=== PATIENT | male | born 1965 | race Caucasian/White ===

== ENCOUNTER 2018-10-14 09:13 | Observation (INO) ==
[2018-10-14] MEDS ORDERED: NITROGLYCERIN 2% OINTMENT 30GM TUBE EXT STA (09:40)
[2018-10-14 09:50] LABS: Basophils # (auto) 0.05 K/uL (0-0.2); Basophils % (auto) 0.8 %; Eosinophils # (auto) 0.16 K/uL (0-0.5); Eosinophils % (auto) 2.5 %; Hemoglobin 15.9 g/dL (14.0-18.0); Immature Granulocytes # (auto) 0.01 K/uL (0.00-0.02); Immature Granulocytes % (auto) 0.2 %; Lymphocytes # (auto) 1.44 K/uL (1.2-3.4); Lymphocytes % (auto) 22.8 %; Mean Corpuscular Hgb Conc 33.8 g/dL (32-36); Mean Corpuscular Volume 83.8 fL (80-100); Mean Platelet Volume 10.1 fL (7.4-10.4); Monocytes # (auto) 0.43 K/uL (0.11-0.59); Monocytes % (auto) 6.8 %; Neutrophils # (auto) 4.23 K/uL (1.4-6.5); Neutrophils % (auto) 66.9 %; Platelet Count 226 K/uL (130-400); RDW Coefficient of Variation 13.3 % (11.5-14.5); RDW Standard Deviation 40.3 fL (36.4-46.3); Red Blood Count 5.61 M/uL (4.7-6.1); White Blood Count 6.32 K/uL (4.8-10.8)
[2018-10-14 10:01] LABS: Alanine Aminotransferase 24 U/L (12-78); Albumin Level 3.6 gm/dl (3.4-5.0); Aspartate Aminotransferase 14 U/L (15-37); BUN Creatinine Ratio 21.7 (10-20); Blood Urea Nitrogen 34 mg/dl (7-18); Calcium 8.9 mg/dl (8.5-10.1); Carbon Dioxide 26 mmol/L (21-32); Chloride 106 mmol/L (98-107); Creatinine Clr Calc Pharmacy 50.8 ml/min; Est GFR (African American) 57.5; Est GFR (Non-African American) 49.6; Glucose 120 mg/dl (70-99); Magnesium 1.9 mg/dl (1.8-2.4); Sodium 138 mmol/L (136-145)
[2018-10-14 10:06] LABS: Albumin Globulin Ratio 1.1 (0.9-2); Alkaline Phosphatase 72 U/L (45-117); Bilirubin,Total 0.5 mg/dl (0.2-1); Globulin 3.4 gm/dl (2.5-4.0); Troponin I < 0.015 ng/ml (0-0.045)
--- NOTE | 2018-10-14 10:06 | XRay Report ---
XR chest 1V portable HISTORY: Atypical Chest Pain COMPARISON: Chest 06/29/2016. FINDINGS: The lungs are clear. The heart is normal in size. No pleural effusions. No pneumothorax. Ol d, healed left-sided rib fractures. IMPRESSION: No acute process. Electronically signed by: Mikael Tucker M.D. 10/14/2018 10:05 AM
[2018-10-14] MEDS ORDERED: METOPROLOL TARTRATE 1 MG/ML VIAL IV STA (11:09)
--- NOTE | 2018-10-14 11:59 | History & Physical Report ---
Date of Service October 14, 2018 Assessment & Plan (1) Precordial chest pain: Concerning for ACS given sx, elevated BP, and resolution with nitro Father with hx of CO Trop neg x1, serials pending EKG WNL CXR neg PRP,CBC WNL If trops are neg x3, stress test in AM No prior cardiology hx, can await stress results for possible cardiology c/s Lipid panel pending (2) Elevated BP without diagnosis of hypertension: No prior hx of same True HTN vs stress reaction Lopressor in ED, monitor PRN lopressor (3) DVT prophylaxis: SCDs, ambulation History of Present Illness Primary Care Provider: Wali Maradiaga 53 y/o M c/o chest pain. Pt states he was outside shoveling snow around 5:30a today when he noted a tightness in his chest, more to the L side. He also noted that moving the snow was more difficult than usual. He felt like he was working much harder than normal despite it being a light snow and only about 1 inch. He felt like it took longer overall. He was a bit SOB with this and felt very tired after he was finished. He went inside and rested a bit. He then drove his daughter to school around 8am. This pain moved into his L UE. On his way back home, he had to ticket puller because he felt like he was going to "black out". He pulled into a gas station and sat for about 10 minutes. He went inside to ask for aspirin, but they did not have any. He went back out to his car where he deliberated driving home vs calling an ambulance because he continued to feel like he might pass out. He decided to drive himself home. He took some aspirin when he got there and laid down on the couch. 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 She took his BP and it was 180 systolic. Given his sx and the elevated BP, she recommended pt come to the ED. Pt was given nitro paste in the ED and his sx have fully resolved. He has no further chest pain or feelings of passing out. Pt states he has never had anything like this in the past. He had no issues over the weekend--no feelings of heavy fatigue or passing out. Pt states he had his BP checked with his PCP 4- 6 weeks ago and it was 120/80. He denies hx of much higher than 130 systolic. Pt denies fever, abd pain, n/v/c/d, LE pain or swelling. Allergies Allergy/AdvReac Type Severity Reaction Status Date / Time cat dander AdvReac Cough Unverified 10/14/18 10:34 mold AdvReac Cough Unverified 10/14/18 10:34 Home Medications Home Medications Medication Instructions Recorded Confirmed Type omega 5-ztx-fsu-fish oil [Fish Oil] 2 cap PO DAILY 10/14/18 10/14/18 History sildenafil 100 mg PO UD 10/14/18 10/14/18 History Past Med/Surg History Medical History Foot pain (Acute) Right lower lobe pneumonia Status post foot surgery (Acute) Heart murmur Family History Father FH: heart attack Social History marital status: Current Living Situation: Family current occupational status: employed Feels Safe at Home: Yes Smoking Status: Never smoker Hx Alcohol Use: Yes (3-4 beers most Tevin nights) Hx Substance Use: No Preferred Language: Mohawk Review of Systems Pertinent positives and negatives reviewed in HPI--all others negative Physical Exam 2 Vital Signs (Past 24 Hours): Last Vital Signs Temp 36.8 C 10/14/18 09:17 Pulse 66 10/14/18 11:38 Resp 18 10/14/18 11:38 BP 150/95 H 10/14/18 11:38 Pulse Ox 94 10/14/18 11:38 Constitutional: WD/WN, vitals as above Eyes: normal visual hernandez by confrontation and + anicteric sclerae Neck: normal visual inspection and trachea midline Respiratory: normal respiratory effort, lungs clear to auscultation Cardiovascular: Rate/Rhythm: regular rate and regular rhythm Gastrointestinal (Abdomen): Inspection/Auscultation: abdomen not distended Percussion/Palpation: abdomen soft; abdomen nontender Musculoskeletal: Head/Neck/Chest: normocephalic and head atraumatic negative for edema, peripheral pulses intact Skin: no rashes, warm and dry Neurologic: awake; not confused Speech / Cognition: normal speech Psychiatric: A+Ox3, euthymic affect Results & Data Diagnostic Findings CXR: neg ECG Rhythm: normal sinus Code Status & VTE Plan Code Status Full code, does not want prolonged mechanical life support, feeding tubes, etc VTE Prophylaxis Plan VTE Prophylaxis will be ordered: Yes
[2018-10-14] MEDS ORDERED: MAGNESIUM HYDROXIDE SUSP 30 ML UDC PO PRN (12:32)
[2018-10-14] MEDS ORDERED: ACETAMINOPHEN 325 MG TAB PO PRN (12:32)
[2018-10-14] MEDS ORDERED: METOPROLOL TARTRATE 1 MG/ML VIAL IV PRN (12:32)
[2018-10-14] MEDS ORDERED: NITROGLYCERIN SL 0.4 MG/TAB TAB SL PRN (12:32)
[2018-10-14] MEDS ORDERED: ONDANSETRON INJ 2 MG/ML 2 ML VIAL IV PRN (12:32)
--- NOTE | 2018-10-14 15:18 | Emergency Department Note ---
Entered by Kim Felton acting as a scribe for Virgilio Calix MD History of Present Illness General Chief complaint: Chest Pain Stated complaint: HEART PALPATATIONS Time Seen by Provider: 10/14/18 09:29 Source: patient History of Present Illness Onset (ago): hour(s) 2 Location: chest Pain Consistency: + intermittent Maximum Pain Intensity: 2 Current Pain Intensity: 2 Quality: + other (tightness) Relieved By: + medication (Aspirin) Associated symptoms: + other (lightheadedness, dizziness, hypertension, feeling winded); no diaphoresis, no nausea/vomiting (nausea) and no shortness of breath The patient is a 53 year old male who presents to the Emergency Room with complaints of intermittent chest pain starting 2 hours ago. The patient states that he had just dropped his daughter off at school when he noticed that he was becoming dizzy and lightheaded. He states that he pulled his truck over as he was nervous about driving. He states that at that time he noticed a dull chest pain that was radiating down his left arm. He states that it was a 2/10 in severity. The patient states that he normally carries Aspirin, but didn�t have any so he stopped in at the gas station nearby the school and asked if they had any. He states that they did not have any, but he was still lightheaded and felt uncomfortable driving so he waited for 2 minutes. The patient states that after 2 minutes he started to feel a little better and drove home. He states that he took 3 Aspirin and sat on the couch for 15 minutes. He reports that he ended up feeling a lot better. The patient states that he decided to go to work a half hour after the pain started. 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 He states that while standing there he noticed the chest pain coming back and the lightheadedness. He states that again it was going down his left arm. 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 The patient states that she checked his blood pressure and it was 180 over something, but that is high for him. The patient complains of feeling winded recently. He notes that when he was shoveling the light snow we had last night that he became winded doing it and it wasn�t as easy as normal. He states that he had a chest tightness with it. The patient states that he currently feels lightheaded and tightness in his chest, but not as bad as it originally was. 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 He notes that all the men on his father�s side of the family have by age 50 from a heart attack, including his father. The patient denies shortness of breath, diaphoresis, nausea, ever being a smoker, a history of hypertension, a history of hyperlipidemia, and a history of any cardiac testing. Home Medications Home Medications Medication Instructions Recorded Confirmed Type omega 9-jma-ifz-fish oil [Fish Oil] 2 cap PO DAILY 10/14/18 10/14/18 History sildenafil 100 mg PO UD 10/14/18 10/14/18 History Allergies Allergy/AdvReac Type Severity Reaction Status Date / Time cat dander AdvReac Cough Unverified 10/14/18 10:34 mold AdvReac Cough Unverified 10/14/18 10:34 Past Med/Surg History Medical History Foot pain (Acute) Right lower lobe pneumonia Status post foot surgery (Acute) Heart murmur Social History marital status: Current Living Situation: Spouse current occupational status: employed Other Information That Helps Us Care for You: No Feels Safe at Home: Yes Safety Concerns: Feels Safe At This Time Smoking Status: Never smoker Second Hand Exposure: No Hx Alcohol Use: Yes Alcohol type: hard liquor Alcohol Intake Frequency: a few times a month Hx Substance Use: No Beliefs That Will Affect Care: None Preferred Language: Dominican Review of Systems See HPI for pertinent positives & negatives. and A total of 10 systems reviewed and were otherwise negative Physical Exam Vital Signs Vital Signs - 24 hr 10/14/18 09:17 10/14/18 09:44 10/14/18 10:00 Temperature 36.8 C Temperature Source Oral Sepsis Recent Fever Within 48 Hours No Sepsis New/Unexplained Change in Mental Status No Sepsis Action Taken by Nursing No Action Required Pulse Rate 80 Pulse Rate [Apical] 67 Pulse Rhythm [Apical] Regular Pulse Strength [Apical] Normal Respiratory Rate 18 18 Respiratory Effort / Characteristics Non-Labored Spontaneous Non-Labored Spontaneous Respiratory Depth Normal Normal Respiratory Pattern Regular Regular Blood Pressure 153/103 H Blood Pressure [Right Arm] 158/117 H Blood Pressure Mean 119 Blood Pressure Mean [Right Arm] 130 Blood Pressure Position Sitting Blood Pressure Position [Right Arm] Pulse Oximetry 97 96 98 Oxygen Delivery Method Room Air Room Air Room Air 10/14/18 10:15 10/14/18 11:36 10/14/18 11:38 Temperature Temperature Source Sepsis Recent Fever Within 48 Hours Sepsis New/Unexplained Change in Mental Status Sepsis Action Taken by Nursing Pulse Rate 66 Pulse Rate [Apical] 65 66 Pulse Rhythm [Apical] Regular Regular Pulse Strength [Apical] Normal Normal Respiratory Rate 18 18 Respiratory Effort / Characteristics Non-Labored Spontaneous Non-Labored Spontaneous Respiratory Depth Normal Normal Respiratory Pattern Regular Regular Blood Pressure 174/121 H Blood Pressure [Right Arm] 160/116 H 150/95 H Blood Pressure Mean Blood Pressure Mean [Right Arm] 130 113 Blood Pressure Position Blood Pressure Position [Right Arm] Lying Pulse Oximetry 96 94 Oxygen Delivery Method Room Air Room Air 10/14/18 12:12 10/14/18 12:32 10/14/18 15:02 Temperature 36.6 C 36.5 C Temperature Source Oral Oral Sepsis Recent Fever Within 48 Hours Sepsis New/Unexplained Change in Mental Status Sepsis Action Taken by Nursing Pulse Rate 59 L 60 Pulse Rate [Apical] 55 L 55 L Pulse Rhythm [Apical] Regular Pulse Strength [Apical] Normal Respiratory Rate 18 14 18 Respiratory Effort / Characteristics Non-Labored Spontaneous Respiratory Depth Normal Respiratory Pattern Regular Blood Pressure 152/101 H Blood Pressure [Right Arm] 129/82 121/79 Blood Pressure Mean Blood Pressure Mean [Right Arm] 97 93 Blood Pressure Position Blood Pressure Position [Right Arm] Sitting Sitting Pulse Oximetry 96 97 96 Oxygen Delivery Method Room Air Room Air Room Air GENERAL: Patient is in no acute distress. HEENT: No acute trauma, normocephalic atraumatic, mucous membranes moist, no nasal congestion, no scleral icterus. NECK: No stridor, no adenopathy, no meningismus, trachea is midline. LUNGS: Clear to auscultation bilaterally, no wheeze, no rhonchi, breath sounds equal. HEART: 1/6 systolic murmur. Regular rate and rhythm. ABDOMEN: Soft, nontender, bowel sounds positive, no hernias, no peritonitis. EXTREMITIES: No cyanosis or edema, full range of motion of all the joints without pain or difficulty, no signs for acute trauma. NEUROLOGIC: Oriented x 3, no acute motor or sensory deficits, no focal weakness. SKIN: No rash, no jaundice, no diaphoresis. Course 0931: Past medical records reviewed. The patient was evaluated in room A3, and a complete history and physical examination were performed. 1105: I reevaluated the patient and he has no pain. He states that he feels great. I discussed a hospital stay with him and he is considering it. 1109: I paged Michela Bonds at this time. 1111: I reviewed the patient's case with Dr. Dylon MONT[facility] Hospitalist. She will evaluate the patient for further management. 1129: I reevaluated the patient and he is agreeable to staying. Consultations Consultation #1: I reviewed the patient's case with Dr. Dylon MONT[facility] Hospitalist. She will evaluate the patient for further management. Time: 11:11 Administered Medications Acetaminophen (Tylenol) 650 mg PO Q4H PRN PRN Reason: Pain or Fever Stop: 11/13/18 12:31 Last Admin: 10/14/18 16:42 Dose: 650 mg Discontinued Medications Metoprolol Tartrate (Lopressor) 5 mg IV NOW STA Stop: 10/14/18 11:10 Last Admin: 10/14/18 11:36 Dose: 5 mg Nitroglycerin (Nitro-Bid 2%) 1 inch EXT NOW STA Stop: 10/14/18 09:41 Last Admin: 10/14/18 10:02 Dose: 1 inch Medical Decision Making Differential Diagnosis Differential diagnoses include OR, angina, reflux, gastritis, musculoskeletal pain, anemia, electrolyte imbalance, PE or aortic dissection. Medical Records Attestation: I reviewed the patient's medical records. Home Medications Current Medication List: was personally reviewed by me Laboratory Data Attestation: I reviewed the patient's lab results. Result diagrams: 10/14/18 09:30 10/14/18 09:30 Lab Results 10/14/18 10/14/18 10/14/18 Range/Units 09:30 09:30 10:34 WBC 6.32 (4.8-10.8) K/uL RBC 5.61 (4.7-6.1) M/uL Hgb 15.9 (14.0-18.0) g/dL Hct 47.0 (42-52) % MCV 83.8 (80-100) fL MCH 28.3 (25-34) pg MCHC 33.8 (32-36) g/dL RDW Std Deviation 40.3 (36.4-46.3) fL RDW Coeff of Gregg 13.3 (11.5-14.5) % Plt Count 226 (130-400) K/uL MPV 10.1 (7.4-10.4) fL Immature Gran % (Auto) 0.2 % Neut % (Auto) 66.9 % Lymph % (Auto) 22.8 % Norman % (Auto) 6.8 % Eos % (Auto) 2.5 % Baso % (Auto) 0.8 % Immature Gran # (Auto) 0.01 (0.00-0.02) K/uL Neut # (Auto) 4.23 (1.4-6.5) K/uL Lymph # (Auto) 1.44 (1.2-3.4) K/uL Norman # (Auto) 0.43 (0.11-0.59) K/uL Eos # (Auto) 0.16 (0-0.5) K/uL Baso # (Auto) 0.05 (0-0.2) K/uL Sodium 138 (136-145) mmol/L Potassium 4.0 (3.5-5.1) mmol/L Chloride 106 (98-107) mmol/L Carbon Dioxide 26 (21-32) mmol/L Anion Gap 6.0 (3-11) BUN 34 H (7-18) mg/dl Creatinine 1.56 H (0.6-1.4) mg/dl Est Cr Clr Drug Dosing 50.8 ml/min Est GFR ( Amer) 57.5 Est GFR (Non-Af Amer) 49.6 BUN/Creatinine Ratio 21.7 H (10-20) Glucose 120 H (70-99) mg/dl Calcium 8.9 (8.5-10.1) mg/dl Magnesium 1.9 (1.8-2.4) mg/dl Total Bilirubin 0.5 (0.2-1) mg/dl AST 14 L (15-37) U/L ALT 24 (12-78) U/L Alkaline Phosphatase 72 (45-117) U/L POC Troponin I < 0.03 (0-0.045) ng/ml Troponin I < 0.015 (0-0.045) ng/ml Total Protein 7.0 (6.4-8.2) gm/dl Albumin 3.6 (3.4-5.0) gm/dl Globulin 3.4 (2.5-4.0) gm/dl Albumin/Globulin Ratio 1.1 (0.9-2) Lipase 152 (73-393) U/L 10/14/18 Range/Units 12:48 WBC (4.8-10.8) K/uL RBC (4.7-6.1) M/uL Hgb (14.0-18.0) g/dL Hct (42-52) % MCV (80-100) fL MCH (25-34) pg MCHC (32-36) g/dL RDW Std Deviation (36.4-46.3) fL RDW Coeff of Gregg (11.5-14.5) % Plt Count (130-400) K/uL MPV (7.4-10.4) fL Immature Gran % (Auto) % Neut % (Auto) % Lymph % (Auto) % Norman % (Auto) % Eos % (Auto) % Baso % (Auto) % Immature Gran # (Auto) (0.00-0.02) K/uL Neut # (Auto) (1.4-6.5) K/uL Lymph # (Auto) (1.2-3.4) K/uL Norman # (Auto) (0.11-0.59) K/uL Eos # (Auto) (0-0.5) K/uL Baso # (Auto) (0-0.2) K/uL Sodium (136-145) mmol/L Potassium (3.5-5.1) mmol/L Chloride (98-107) mmol/L Carbon Dioxide (21-32) mmol/L Anion Gap (3-11) BUN (7-18) mg/dl Creatinine (0.6-1.4) mg/dl Est Cr Clr Drug Dosing ml/min Est GFR ( Amer) Est GFR (Non-Af Amer) BUN/Creatinine Ratio (10-20) Glucose (70-99) mg/dl Calcium (8.5-10.1) mg/dl Magnesium (1.8-2.4) mg/dl Total Bilirubin (0.2-1) mg/dl AST (15-37) U/L ALT (12-78) U/L Alkaline Phosphatase (45-117) U/L POC Troponin I (0-0.045) ng/ml Troponin I < 0.015 (0-0.045) ng/ml Total Protein (6.4-8.2) gm/dl Albumin (3.4-5.0) gm/dl Globulin (2.5-4.0) gm/dl Albumin/Globulin Ratio (0.9-2) Lipase (73-393) U/L Imaging Data Radiologist's Impression: Radiology results as stated below per my review and the radiologist's interpretation: XR chest 1V portable HISTORY: Atypical Chest Pain COMPARISON: Chest 06/29/2016. FINDINGS: The lungs are clear. The heart is normal in size. No pleural effusions. No pneumothorax. Old, healed left-sided rib fractures. IMPRESSION: No acute process. Electronically signed by: Mikael Tucker M.D. 10/14/2018 10:05 AM ECG Data Attestation: I personally reviewed and interpreted this ECG as follows: Indication: chest pain Rate (beats per minute): 73 Rhythm: normal sinus Findings: no PVC and no ST elevation Blood Pressure Blood Pressure Findings: Elevated blood pressure Blood Pressure Disposition: further management by hospitalist [facility] Narrative There is no leukocytosis or concerning anemia. Renal panel testing does show a mildly elevated creatinine, no kidney failure. No hepatitis. No pancreatitis. EKG shows a sinus rhythm, no acute ischemia. Cardiac enzyme testing x1 is not consistent with acute cardiac injury. Chest film does not show pneumonia or CHF. No mediastinal widening. The patient was given nitroglycerin paste. He received IV Lopressor, 5 mg. He did not receive any additional aspirin as he had taken some prior to arrival. With the nitroglycerin paste, the patient's pain completely resolved, he was resting comfortably. I discussed the findings with the patient, I talked with case management. Given the chest discomfort, the relief of pain with nitroglycerin, the exertional component to his presentation, further cardiac workup was felt warranted. The on-call hospitalist was consulted. Impression & Plan Precordial chest pain, HTN (hypertension) Discharge Plan Visit Data *Final* Discharge Date/Time: 10/14/18 12:12 Chief Complaint: Chest Pain Stated Complaint: HEART PALPATATIONS ED Provider: Virgilio Calix Discharge Problem: Precordial chest pain, HTN (hypertension) Patient Disposition: Admitted As Inpatient Discharge Instructions Interventions: ED Discharge Assessment Last Done: 10/14/18 12:12 The scribe's documentation has been prepared under my direction and personally reviewed by me in its entirety. I confirm that the note above accurately reflects all work, treatment, procedures, and medical decision making performed by me.
[2018-10-14] MEDS ORDERED: ZOLPIDEM TARTRATE 10 MG TAB PO PRN (19:40)
[2018-10-15 06:18] LABS: Chol HDL Ratio 5; Cholesterol 180 mg/dl (0-200); HDL Cholesterol 40 mg/dl; LDL Cholesterol Calculated 110 mg/dl; Triglycerides 148 mg/dl (0-150); VLDL Cholesterol 30 mg/dl
[2018-10-15] MEDS ORDERED: OMEGA-3 (PURIFIED FISH OIL) 1 GM CAP PO SCH (09:00)
--- NOTE | 2018-10-15 16:18 | Discharge Summary ---
Date of Service October 15, 2018 Admission HPI Per Admitting Provider 53 y/o M c/o chest pain. Pt states he was outside shoveling snow around 5:30a today when he noted a tightness in his chest, more to the L side. He also noted that moving the snow was more difficult than usual. He felt like he was working much harder than normal despite it being a light snow and only about 1 inch. He felt like it took longer overall. He was a bit SOB with this and felt very tired after he was finished. He went inside and rested a bit. He then drove his daughter to school around 8am. This pain moved into his L UE. On his way back home, he had to crop puller because he felt like he was going to "black out". He pulled into a gas station and sat for about 10 minutes. He went inside to ask for aspirin, but they did not have any. He went back out to his car where he deliberated driving home vs calling an ambulance because he continued to feel like he might pass out. He decided to drive himself home. He took some aspirin when he got there and laid down on the couch. 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 She took his BP and it was 180 systolic. Given his sx and the elevated BP, she recommended pt come to the ED. Pt was given nitro paste in the ED and his sx have fully resolved. He has no further chest pain or feelings of passing out. Pt states he has never had anything like this in the past. He had no issues over the weekend--no feelings of heavy fatigue or passing out. Pt states he had his BP checked with his PCP 4- 6 weeks ago and it was 120/80. He denies hx of much higher than 130 systolic. Pt denies fever, abd pain, n/v/c/d, LE pain or swelling. Principal Diagnosis Chest pain - ruled out for Acute coronary syndrome. Pain likely secondary to musculoskeletal etiology Discharge Exam Constitutional WD/WN, vitals as above Respiratory normal respiratory effort, lungs clear to auscultation Cardiovascular RRR, no murmur, no edema Gastrointestinal (Abdomen) normal bowel sounds, soft, nontender, no hepatosplenomegaly Neurologic No focal deficit Psychiatric A+Ox3, euthymic affect Discharge Data Allergies Allergy/AdvReac Type Severity Reaction Status Date / Time cat shaq AdvReac Cough Unverified 10/14/18 10:34 mold AdvReac Cough Unverified 10/14/18 10:34 Consultations 10/14/18 11:13 ED Decision to Admit Stat Hospital Course (1) Precordial chest pain: Pain was Concerning for ACS given sx, elevated BP, and resolution with nitro and Father with hx of ID He was kept on PCU. Troponin x 2 came back negative. Underwent stress test which was negative as well. Symptoms possibly MSK related. Dizziness could be secondary to viagra use. (2) Elevated BP without diagnosis of hypertension: No prior hx of HTN BP came down through the hospital course. Possibly stress reaction with possible higher underlying baseline. With h/o snoring - to consider sleep study. (3) DVT prophylaxis: SCDs, ambulation Total Time Total Time Spent Total Time Spent (In Minutes): 35 min Discharge Plan Discharge Items Patient Disposition: Home - Self-Care Reason For Visit: CHEST PAIN Discharge Diagnosis: Chest pain - ruled out for Acute coronary syndrome Discharge Goals: Prevent disease Activity: Resume your previous activity Non-emergency contact: Primary Care Provider Call non-emergency contact if: your symptoms worsen Diet: Regular Addtl Provider Instructions: You were kept in the hospital for concern of acute coronary syndrome. Your heart tests have come back normal including a stress. You should follow up with your family physician to discuss your symptoms further. For your history of significant snoring - you should discuss with your family physician about getting a sleep study done. Prescriptions: Continue sildenafil 100 mg tablet 100 mg PO UD RF: 0 omega 2-vix-cym-fish oil [Fish Oil] 1,000 mg (120 mg-180 mg) Capsule 2 cap PO DAILY RF: 0 Stand-Alone Forms: [employer]/Other Patient Handouts: Angina, Heart Attack First Aid, Heart Risk, Heart Attack Warning Signs Discharge Orders: Discharge Order (Routine); Ordered 10/15/18 Ordered By: Daniela Daniels Admission Data Admit Date/Time: 10/14/18 11:47 Attending Provider: Daniela Daniels Admit Provider: Joceline Lino Primary Care Provider: Wali Maradiaga Other Providers: Joceline Lino Service: Telemetry Other Interventions: Discharge Summary Assessment (RN) Last Done: 10/15/18 11:55 DC Date/Time DO NOT enter until pt leaves facility: 10/15/18 12:00
== END 2018-10-15 12:00 | disposition home or self-care (01) ==
LOC: ED 09:13 → 2S 09:13 → SUATTDRO 11:47 → 2S 12:12